=== PATIENT | male | born 1965 | race Caucasian/White ===

== ENCOUNTER 2021-06-15 15:23 | Emergency (ER) | payer OTHER, SELFPAY ==
--- NOTE | ~2021-06-15 | XR_ITS ---
EXAMINATION: XR HAND, LEFT CLINICAL INFORMATION: Left hand laceration. COMPARISON: None TECHNIQUE: PA, lateral, and oblique views of the left hand. FINDINGS: Multiple punctate radiopaque densities are seen overlying the second metacarpal phalangeal region. A larger radiopaque density overlies the lateral wrist. Osseous structures are intact without overt fracture. The carpal bones are normally aligned. The distal radius and ulna are intact. XR/XR hand LT min 3V IMPRESSION: 1. Multiple punctate radiopaque densities/foreign bodies overlying the second metacarpophalangeal region may be associated with the patient's laceration. Correlate with physical exam. A larger radiopaque density overlying the left wrist may or may not be associated with the patient's acute injury. No acute osseous abnormality.
[2021-06-15 15:38] VITALS: BP 188/117; PULSE 89; RESP 18; TEMP 36.5; O2SAT 95; BMI 39.9
[2021-06-15] MEDS: Lidocaine HCl 1 % MPF 5 ML VIAL SUBCUT ×2 (16:12→16:13)
[2021-06-15] MEDS: Diphth,Pertus(ACell),Tet Adult 0.5 ML SYRINGE IM (16:32)
--- NOTE | 2021-06-15 17:10 | ED.WOUNDLAC ---
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, no numbness no weakness no tingling no other injury no foreign body sensation Related Data Previous Rx's Medication Instructions Recorded cephalexin 500 mg tablet 500 mg PO QID 5 Days #20 tab 06/15/21 Allergies Allergy/AdvReac Type Severity Reaction Status Date / Time penicillin V Allergy Unknown Verified 04/19/13 00:00 Penicillins [PENICILLINS] Allergy Unknown ANAPHYLAXIS Unverified 12/29/19 14:45 Review of Systems Review of Systems: Positive for left hand laceration Negatives are no fever no chills no dizziness no weakness no fainting no feeling faint no headache no neck pain no numbness weakness or tingling no foreign body since no other extremity injuries Yes all other systems are reviewed and are negative PMFSH Past Medical History Source: nursing notes reviewed Social History Social History Advance Directives: No Advance Directives Information Provided: No Physical Exam Vital Signs: Vital Signs: Last Vital Signs Temp 97.7 F 06/15/21 15:38 Pulse 73 06/15/21 17:23 Resp 18 06/15/21 17:23 BP 171/111 H 06/15/21 17:23 Pulse Ox 95 06/15/21 17:23 BMI result Body Mass Index 39.9 General appearance no acute distress Head is normocephalic atraumatic Neck is supple Respiratory no distress Extremities full range of motion x4 including left hand which has a 3 cm gaping laceration from the dorsum of the index finger over the MCP joint to the back of the hand, there is full extension with full strength and normal sensation distal Other extremities normal No focal motor sensory deficits Course Course Course Narrative: X-ray of left hand showed multiple punctate radiopaque densities overlying 2nd MCP area which is where the laceration is I could not visualize these foreign bodies and I did irrigate copiously Laceration repair note for left hand laceration Anesthesia was 6 cc of 1% lidocaine The wound was copiously irrigated and no foreign body was visualized Wound was closed with a mix of 4-0 in 5 0 sutures, bleeding was controlled Dressing was applied Prophylactic antibiotic Keflex was given as well as a tetanus shot Due to a childhood questionable allergy to penicillin the patient was observed for half an hour with no reaction to the antibiotic Discharge Plan Discharge Clinical Impression: Laceration Patient Disposition: Home, Self-Care Additional Instructions: Stitches out in 10-14 days You got a tetanus shot We using preventive antibiotic Keflex for 5 days Return any time for spreading redness, worse pain and swelling, fever, red stripe up the arm, any sign of infection any worse condition or any concerns Prescriptions: New cephalexin 500 mg tablet 500 mg PO QID 5 Days Qty: 20 0RF
[2021-06-15] MEDS: cephALEXin 500 MG CAPSULE PO (17:22)
[2021-06-15 17:23] VITALS: BP 171/111; PULSE 73; RESP 18; O2SAT 95
== END 2021-06-15 18:06 | disposition home or self-care (01) ==
PROVIDERS: Emergency Provider Emergency Medicine Emergency Medical Services; PCP Internal Medicine
DX: S61.422A Laceration with foreign body of left hand, initial encounter (principal); W29.8XXA Contact with other powered hand tools and household machinery, initial encounter; Y93.89 Activity, other specified; Y92.019 Unspecified place in single-family (private) house as the place of occurrence of the external cause; Y99.9 Unspecified external cause status
CPT/HCPCS: 12042; 73130; 90471; 90715; 99283; 99284

== ENCOUNTER 2021-11-15 11:31 | Emergency (ER) | payer OTHER, SELFPAY ==
--- NOTE | ~2021-11-15 | XR_ITS ---
EXAMINATION: XR HAND, RIGHT CLINICAL INFORMATION: Right index finger COMPARISON: 06/15/2021 TECHNIQUE: PA, lateral, and oblique views of the right hand. FINDINGS: There are degenerative changes, at the second DIP joint but there is no fracture or dislocation process. XR/XR hand RT 2V IMPRESSION: No acute finding. No fracture.
[2021-11-15 11:47] VITALS: BP 183/91; PULSE 73; RESP 18; TEMP 36.7; O2SAT 94; BMI 37.5
--- NOTE | 2021-11-15 12:38 | ED.UPPEXIN ---
HPI - Extremity Injury (Upper) General Chief Complaint: Extremity Injury, Upper Stated Complaint: finger INJ Time Seen by Provider: 11/15/21 12:11 Source: patient Mode of arrival: ambulatory Limitations: no limitations History of Present Illness HPI narrative: 56-year-old male presenting to the ED with complaints of right index finger pain after he accidentally hammer date with an item at home. He reports that since then he has been having pain. He denies any paresthesia or any other injuries complaints or concerns at this time. 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) Other injuries: none Handedness: right Place: home Severity: mild Relieving factors: none Exacerbating factors: movement of extremity Context: direct blow Associated symptoms: denies other symptoms Related Data Previous Rx's Medication Instructions Recorded cephalexin 500 mg tablet 500 mg PO QID 5 days #20 tabs 06/15/21 acetaminophen 300 mg-codeine 30 mg 1 tab PO Q8H PRN pain #14 tabs 11/15/21 tablet ibuprofen 800 mg tablet 800 mg PO Q8H PRN pain #14 tabs 11/15/21 Allergies Allergy/AdvReac Type Severity Reaction Status Date / Time penicillin V Allergy Unknown Anaphylaxis Verified 11/15/21 11:47 Penicillins [PENICILLINS] Allergy Unknown ANAPHYLAXIS Verified 11/15/21 11:47 Review of Systems Review of Systems: Constitutional : No Weight loss, No Fever, No Chills, No Night Sweats, No Fatigue, No Malaise ENT/Mouth : No Hearing loss, No Ear Pain, No Nasal Congestion, No Sinus Pain, No Hoarseness, No sore throat, No Rhinorrhea, No Swallowing Difficulty Eyes: No Eye Pain, No Swelling, No Redness, No Foreign Body, No Discharge, No Vision Changes Cardiovascular : No Chest Pain, No SOB, No Dyspnea on Exertion, No Orthopnea, No Edema, No Palpitations Respiratory : No Cough, No Sputum, No Wheezing, No Smoke Exposure, No Dyspnea Gastrointestinal : No Nausea, No Vomiting, No Diarrhea, No Constipation, No abdominal Pain, No Hematochezia, No Melena Genitourinary : no irregular bleeding, No Dysuria, No Urinary Frequency, No Hematuria, No Urinary Incontinence, No Urgency, No Flank Pain, No Urinary Flow Changes, No Hesitancy Musculoskeletal : + right index finger joint pain, No Myalgias, No Joint Swelling Skin : No Skin Lesions, No rash Neuro : No Weakness, No Numbness, No Paresthesias, No Loss of Consciousness, No Dizziness, No Headache Psych : No Anxiety/Panic, No Depression, No SI/HI/AH/VH, No Social Issues, Heme/Lymph: No Bruising, No Bleeding,No Lymphadenopathy Endocrine : No Polyuria, No Polydipsia, No Temperature Intolerance Yes all other systems are reviewed and are negative [facility] Past Medical History Attestation statement: The following information was validated with the patient. Social History Social History Advance Directives: No Advance Directives Information Provided: No Physical Exam Vital Signs: Vital Signs: Last Vital Signs Temp 98.1 F 11/15/21 11:47 Pulse 73 11/15/21 11:47 Resp 18 11/15/21 11:47 BP 183/91 H 11/15/21 11:47 Pulse Ox 94 11/15/21 11:47 O2 Del Method 11/15/21 11:47 BMI result Body Mass Index 37.5 vital signs have been reviewed as normal and appeared to be correct. Blood pressure 183/91 Heart rate normal. Respiration rate normal. Temperature normal. Oxygen saturation normal. Appearance: Alert. Oriented X3. No acute distress. Head: Normal external exam. Normocephalic. Atraumatic. Eyes: PERRLA. EOMI. Conjunctiva and sclera normal. Eyelids normal. ENT: Pharynx normal. Uvula midline. Moist mucous membranes. Neck: Normal inspection. Neck supple. FROM. CVS: Normal heart rate and rhythm. Respiratory: No respiratory distress. Painless inspiration. Skin: Skin warm and dry. Normal skin color. Normal skin turgor. No rashes/lesions/lacerations noted. Extremities: right index finger pain/swelling although no obvious ligamentous or tendon injury noted. He has full range of motion all fingers. Otherwise all other extremities exhibit normal range of motion nontender. Neuro: Oriented X 3. No motor deficit. No sensory deficit. Reflexes normal. Normal steady gait. No focal neuro deficits noted. Vascular: + radial pulses/+ 2 distal pedal pulses/+2 dorsalis pedis b/l. Normal cap refill. No cyanosis noted to upper extremity nails and lower extremity toes nails. Course Course Course Narrative: X-ray negative for any acute fractures. Patient most likely finger sprain. Will DC home with symptomatic treatment instructions return if any new or worsening symptoms follow up with primary care provider. Patient understands agrees with this plan. MDM - Extremity Injury (Upper) Medical Records Attestation: I reviewed the patient's medical records. Imaging Data finger right sided : Attestation: I personally reviewed and interpreted this imaging study as follows: Radiologist's impression: FINDINGS: There are degenerative changes, at the second DIP joint but there is no fracture or dislocation process.? XR/XR hand RT 2V IMPRESSION: No acute finding. No fracture. Discharge Plan Discharge Clinical Impression: Sprain of right index finger Patient Disposition: Home, Self-Care Instructions: Finger Sprain (ED) Prescriptions: New ibuprofen 800 mg tablet 800 mg PO Q8H PRN (Reason: pain) Qty: 14 0RF acetaminophen-codeine 300-30 mg tablet 1 tab PO Q8H PRN (Reason: pain) Qty: 14 0RF No Action cephalexin 500 mg tablet 500 mg PO QID 5 Days Qty: 20 0RF Referrals: Sandeep Bhardwaj DO, MD [Primary Care Provider] - 3 days Print Language: Slovak
== END 2021-11-15 13:27 | disposition home or self-care (01) ==
PROVIDERS: Emergency Provider Emergency Medicine; PCP Internal Medicine
DX: S63.610A Unspecified sprain of right index finger, initial encounter (principal); M79.641 Pain in right hand; Y29.XXXA Contact with blunt object, undetermined intent, initial encounter; Y93.9 Activity, unspecified; Y92.9 Unspecified place or not applicable; Y99.9 Unspecified external cause status; Z79.899 Other long term (current) drug therapy
CPT/HCPCS: 73120; 99282; 99283

== ENCOUNTER 2024-10-19 08:44 | Outpatient (AMB) | payer OTHER, SELFPAY ==
--- NOTE | 2024-10-19 08:46 | A.OFFVIS_ITS ---
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 Most recent A1c last month was 9% secondary to noncompliance with medication. Was initially started on treatment with metformin couldn't tolerate the 1000 mg regular strength formulation. . Current regimen: jardiance 25 mg metformin ER 1000mg bid Lantus 60 units holds if less than 130 due to nocturnal hypoglycemia he takes this only twice per week as he does not like injecting insulin Humalog sliding scale this was not covered by his insurance and he did not discuss with his PCP. Checks sugars none recent Reports low sugars in the past at night when taking 60 units of Lantus Most recent A1C: 9% 09/23/24 Family history of T2DM in Has retinopathy requiring eye injections, has f/u scheduled + neuropathy, mainly numbness. Denies nephropathy, on arb. [facility] Has HLD, on statin. Last LDL [] as measured on []. denies CAD. Diet: has been attempting to balance. Weight: stable Has not had diabetes education. [facility] Medical History (Updated 10/19/24 @ 09:53 by Ebony Leigh NP) Diabetes type 2 Myocardial infarction Lumbar spinal stenosis Acute insomnia HTN (hypertension) HLD (hyperlipidemia) GERD (gastroesophageal reflux disease) History of morbid obesity Surgical History (Updated 10/19/24 @ 09:30 by ABBY Sparks) S/P lumbar fusion Shoulder pain with history of repair of rotator cuff History of coronary artery stent placement Hx of rotator cuff surgery History of back surgery History of surgery on left wrist Hx of neck surgery Family History Father Family history of diabetes mellitus Mother No problems noted. Social History Alcohol intake: never Patient Tobacco Use Status: Never used Tobacco Physical Exam Vital Signs: Last Vital Signs Pulse 64 10/19/24 08:47 BP 112/70 10/19/24 08:47 Pulse Ox 94 10/19/24 08:47 Oxygen Delivery Method Room Air 10/19/24 08:47 BMI result Body Mass Index 39.7 Absence of Cushingoid features. Absence of acromegalic features. Neck exam reveals nl size thyroid about 15 gms. No thyroid nodules palpable. No carotid bruits present. Lungs CTA. Heart S1 S2, Reg R/R. No M/R/ G. Skin exam reveals absence of vitiligo or acanthosis nigricans. Abdominal exam reveals Soft NT/ND with NA BS. No organomegaly present. Const Other: Absence of Cushingoid features. Absence of acromegalic features. Neck exam reveals nl size thyroid about 15 gms. No thyroid nodules palpable. Heart S1 S2, Reg R/R. No M/R G. Abdomen protuberant. Skin exam reveals absence of vitiligo or acanthosis nigricans. No edema. Visual exam of foot performed. No ulcerations or open lesions. No inter digit maceration or fissuring. No onychomycosis, no callouses. Sensation intact to monofilament exam. Vibratory sensation is diminshed with 128 Hz tuning fork. Neck Other: . Extrem Other: Visual exam of foot performed. No ulcerations or open lesions. No onchomycosis, no callouses.Pulses 2 + distally Sensation intact to monofilament exam. Vibratory sensation sensed is intact with 128 Hz tuning fork Office Procedures AMB Patient Education/Training AMB Patient Education/Training Documentation: Patient was educated about Mounjaro. Pt is aware this is given once per week. Advised patient to write this done on a calendar or there is a weekly calendar located on the inside cover of the box that mounjaro is dispensed in. Pt is aware that each mounjaro pen is for one time use. Patient was advised to keep the mounjaro in the fridge. If kept at room temperature it is okay to use for up to 21 days. Patient advised this can be given in the abdomen or thighs. In regards to the abdomen patient is aware to keep 2 inches away from the umbilicus. Advised with the back of the arms they need to have someone else administer injection. Pt aware he needs to rotate his sites in order to avoid scar tissue build up and to ensure medication is absorbed fully. Patients is aware to avoid any areas that are open, bruised, scars or are otherwise not clean and intact. Pt advised the following regarding steps to inject Trulicity. 1. Wash your hands and clean the site of injection with an alcohol swab. 2. Uncap the pen by pulling the base cap straight off and disposing in the regular trash. 3. Place the Mounjaro at your site of injection and unlock by turning the lock ring. 4. Press and hold the green injection button. You will hear a click 5. Continue to hold firmly until you hear a second click about 5-10 seconds. 6. Remove the pen from your skin and dispose of Mounjaro in a sharps container. atient advised to call with any side effects such as nausea, vomiting, abdominal pain or with any low blood sugars. Reviewed signs and symptoms of hypoglycemia such as shakiness, sweating, dizziness or tremors. Patient advised to check via fingerstick when this happens. Patient confirms has a glucometer at home and is aware of how to use it. Patient aware to call the office with any other concerns or questions. Results Reviewed Results Reviewed: Laboratory Last Values Glucose (Clinic) 154 mg/dL (60-115) H 10/19/24 09:13 Assessment & Plan Assessment & Plan (1) Diabetes type 2: Code(s): E11.9 - Type 2 diabetes mellitus without complications Category: Medical Plan: 58-year-old type 2 diabetic with poor control primarily secondary to noncompliance with the using sensor noncompliance with taking insulin as he reports he does not like to prick himself. He also reports his bolus insulin was not covered by his insurance. I reviewed with him given his retinopathy for which he is getting injections for that control of his diabetes is of the utmost importance. With his A1c at 9%, he is approximately 75% more likely to h ave continued damage with his eyes/kidneys. We reviewed getting a morning glucose of less than 130 and 2 hours postprandial 180. Continue Jardiance 25 mg daily Continue metformin a 1000 b.i.d. Restart Lantus at 45 units Start on Mounjaro 2.5 mg. As he has retinopathy this would be the best choice for him as far as a GLP 1 agonist goes. Trulicity is contraindicated with retinopathy. He will be sent to meet cVidya meter test strips and lancets for backup. He will return in approximately 6 weeks to meet with the another provider as I am retiring. I did stress to the patient the importance of getting his blood sugars under control. Orders: Orders AMB Patient Education/Training Session 10/19/24 E11.9 - Type 2 diabetes mellitus without complications Medications: New Mounjaro (tirzepatide) 2.5 mg (0.5 mL) subcut QWEEK 2 mL 3RF 4 weeks NS Dexcom G6 Sensor (blood-glucose sensor) As directed every 10 days 3 ea 11RF NS E11.9 - Type 2 diabetes mellitus without complications Discontinued cephalexin Discontinued Reason: Doctor's Order 500 mg PO QID 5 days 20 tabs 0RF ibuprofen Discontinued Reason: Doctor's Order 800 mg PO Q8H PRN 14 tabs 0RF pain Patient Instructions: The patient had an opportunity to ask questions regarding treatment plan. The patient expressed understanding and agreement with the above treatment plan. The patient is aware they should contact our office by phone for worsening glucose readings or for any low blood sugars which may warrant a change in diabetes medication. Compliance is encouraged with medications and any followup testing/consults which may have been ordered. The patient was counseled to achieve a target A1C of 7% (154 avg). Fasting blood sugars should be 90-130 in the morning and less than 180 two hours after meals. Reviewed the relationship between poor diabetic control and the development of complications. Check your feet daily looking for any signs of infection, drainage, redness, ulceration and seek medical attention if this occurs. Break in shoes gradually and do not wear open-toed shoes or walk stocking footed or barefooted. Coding Level of Care Code Tele New Pt Level 4 (79694) Complex EM visit Add On G2211 Diagnoses Diabetes type 2 E11.9 Time Spent (min) 30 Comment Time spent reviewing labs/provider notes, face to face, chart doc
[2024-10-19 08:47] VITALS: BP 112/70; PULSE 64; O2SAT 94; BMI 39.7
[2024-10-19 09:17] LABS: Glucose, Whole Blood 154 mg/dL (60-115)
== END 2024-10-19 10:00 | disposition home or self-care (01) ==
LOC: HO.ENCR 08:45
PROVIDERS: PCP Internal Medicine; Visit Provider Nurse Practitioner Adult Health
DX: E11.9 Type 2 diabetes mellitus without complications (principal)
CPT/HCPCS: 99204; G2211

== ENCOUNTER → 2024-10-19 08:44 | Outpatient (BNVA) | payer OTHER, SELFPAY | PROVIDERS: PCP Internal Medicine; Visit Provider Nurse Practitioner Adult Health | DX: E11.9 Type 2 diabetes mellitus without complications (principal) | CPT/HCPCS: 82947; 99202 ==

== ENCOUNTER 2024-11-16 09:09 | Outpatient (AMB) | payer OTHER, SELFPAY ==
[2024-11-16 09:24] VITALS: BP 122/80; PULSE 68; O2SAT 98; BMI 39.4
--- NOTE | 2024-11-16 09:24 | A.OFFVIS_ITS ---
Vital Signs 11/16/24 09:24 Height 5 ft 7 in Weight 251 lb 5.231 oz BMI 39.4 BP 122/80 Blood Pressure Location Rt brachial Position Sitting Pulse 68 Pulse Source Pulse Oximeter Pulse Oximetry (%) 98 Oxygen Delivery Method Room Air Intake Visit Reasons: T2DM Intake Note: Patient presents today for a follow-up on Type 2 Diabetes Mellitus: Last Diabetic eye exam was on: Patient sees [place] Din[facility] every 8 weeks for eye shots, next will see the surgeon for possible cataract surgery. Last Podiatry exam was on: Patient does not see a Computer Technical Specialist Most recent HbA1c: 9.0%, 09/23/2024 PCP Random Glucose: 123 mg/dL Incident Response Specialist Required: No Accompanied by: Self / Same As Patient Allergies penicillin V Allergy (Unknown, Verified 10/19/24 08:47) Anaphylaxis Penicillins (PENICILLINS) Allergy (Unknown, Verified 10/19/24 08:47) ANAPHYLAXIS HPI Comments Details: 59 YO male who is seen in consultation for T2DM at the request of PCP. Most recent A1c last month was 9% secondary to noncompliance with medication. Medical history-[place], htn, hld, retinopathy Was initially started on treatment with metformin couldn't tolerate the 1000 mg regular strength formulation. Medications Continue Jardiance 25 mg daily Continue metformin ER 1000 b.i.d.-intolerant regular release Lantus 20 units. Has been only taking 10 units. Mounjaro 2.5 mg-just completed 4th dose. Incredible improvement in glucose readings. Trulicity is contraindicated with retinopathy. Most recent A1C: 9% 09/23/24. Is currently getting fasting 80s-130s. Blood glucose has not been higher than 156 since starting mounjaro. Was getting low BG with lantus 20 Family history of T2DM in Has retinopathy requiring eye injections, has f/u scheduled + neuropathy, mainly numbness. Denies nephropathy, on arb. [facility] Has HLD, on statin. Last LDL [] as measured on []. denies CAD. Diet: has been attempting to balance. Weight: down 2 pounds Has not had diabetes education. ROS CONSTITUTIONAL: Denies weight loss, fever and chills. HEENT: Denies changes in vision and hearing. RESPIRATORY: Denies SOB and cough. CV: Denies palpitations and CP GI: Denies abdominal pain, nausea, vomiting and diarrhea. : Denies dysuria and urinary frequency. MSK: Denies new myalgia and joint pain. SKIN: Denies rash and pruritus. NEUROLOGICAL: Denies headache PSYCHIATRIC: Denies recent changes in mood. PHYSICAL EXAM: GENERAL: Alert and oriented x 3. NAD EYES: EOMI. Anicteric. HENT: Moist mucous membranes. No scleral icterus. No cervical lymphadenopathy. LUNGS: Clear to auscultation bilaterally. CARDIOVASCULAR: Regular rate and rhythm. No murmur. No JVD. ABDOMEN: Soft, non-tender +bs EXTREMITIES: No edema. Non-tender. SKIN: No rashes or lesions. Warm. NEUROLOGIC: No focal neurological deficits. CN II-XII grossly intact PSYCHIATRIC: Cooperative. Appropriate mood and affect [facility] Medical History Diabetes type 2 Myocardial infarction Lumbar spinal stenosis Acute insomnia HTN (hypertension) HLD (hyperlipidemia) GERD (gastroesophageal reflux disease) History of morbid obesity Surgical History S/P lumbar fusion Shoulder pain with history of repair of rotator cuff History of coronary artery stent placement Hx of rotator cuff surgery History of back surgery History of surgery on left wrist Hx of neck surgery Family History Father Family history of diabetes mellitus Mother No problems noted. Social History Alcohol intake: never Patient Tobacco Use Status: Never used Tobacco Physical Exam Vital Signs: Last Vital Signs Pulse 68 11/16/24 09:24 BP 122/80 11/16/24 09:24 Pulse Ox 98 11/16/24 09:24 Oxygen Delivery Method Room Air 11/16/24 09:24 BMI result Body Mass Index 39.4 Results Reviewed Results Reviewed: Laboratory Last Values Glucose (Clinic) 123 mg/dL (60-115) H 11/16/24 09:30 Assessment & Plan Assessment & Plan (1) Diabetes type 2: Code(s): E11.9 - Type 2 diabetes mellitus without complications Category: Medical Qualifiers: Diabetes mellitus alf insulin use: with supervisor long goods use Diabetes mellitus complication status: with ophthalmic complications Diabetes mellitus complication detail: with diabetic retinopathy Diabetic retinopathy severity: with unspecified retinopathy severity Diabetes mellitus macular edema: macular edema presence unspecified Laterality: left Qualified Code(s): E11.319 - Type 2 diabetes mellitus with unspecified diabetic retinopathy without macular edema; Z79.4 - [facility] (current) use of insulin Plan: DM follow up Improved glycemic control. continue lantus at 10 units. Increase mounjaro to 5u weekly Will expected A1C at goal with next draw. Treat hypoglycemia by rules of 15s. Follow up six weeks -sooner as needed Medications: New Mounjaro (tirzepatide) 5 mg (0.5 mL) subcut QWEEK 6 mL 1RF NS E11.9 - Type 2 diabetes mellitus without complications Dexcom G7 Sensor (blood-glucose sensor) every 10 days 9 ea 3RF NS E11.9 - Type 2 diabetes mellitus without complications Dexcom G7 Freight Shipping Agent (blood-glucose,spa director,cont) As directed 1 ea 0RF NS E11.9 - Type 2 diabetes mellitus without complications Changed From empagliflozin (Jardiance) 25 mg PO DAILY To Jardiance (empagliflozin) 25 mg PO DAILY 90 tabs 3RF NS Discontinued Mounjaro (tirzepatide) Discontinued Reason: Duplicate 2.5 mg (0.5 mL) subcut QWEEK 4 weeks 2 mL 3RF NS Coding Level of Care Code Est Pt Level 4 (37942) Diagnoses Type 2 diabetes mellitus with retinopathy of left eye, with long-term current use of insulin, macular edema presence unspecified, unspecified retinopathy severity E11.319; Z79.4 Diabetes mellitus alf insulin use: with alf use Diabetes mellitus complication status: with ophthalmic complications Diabetes mellitus complication detail: with diabetic retinopathy Diabetic retinopathy severity: with unspecified retinopathy severity Diabetes mellitus macular edema: macular edema presence unspecified Laterality: left
[2024-11-16 09:34] LABS: Glucose, Whole Blood 123 mg/dL (60-115)
== END 2024-11-16 09:57 | disposition home or self-care (01) ==
LOC: HO.ENCR 09:10
PROVIDERS: PCP Internal Medicine; Visit Provider Internal Medicine
DX: E11.319 Type 2 diabetes mellitus with unspecified diabetic retinopathy without macular edema (principal); Z79.4 Long term (current) use of insulin

== ENCOUNTER → 2024-11-16 09:09 | Outpatient (BNVA) | payer OTHER, SELFPAY | PROVIDERS: PCP Internal Medicine; Visit Provider Internal Medicine | DX: E11.311 Type 2 diabetes mellitus with unspecified diabetic retinopathy with macular edema (principal); Z79.4 Long term (current) use of insulin | CPT/HCPCS: 82947; 99212 ==

== ENCOUNTER 2024-12-28 15:37 | Outpatient (AMB) | payer OTHER, SELFPAY ==
--- NOTE | 2024-12-28 15:43 | A.OFFVIS_ITS ---
Vital Signs 12/28/24 15:44 Height 5 ft 7 in Weight 244 lb 11.41 oz BMI 38.3 BP 148/90 H Blood Pressure Location Rt brachial Position Sitting Pulse 81 Pulse Source Pulse Oximeter Pulse Oximetry (%) 94 Oxygen Delivery Method Room Air Intake Visit Reasons: DM Intake Note: Patient presents today for a follow-up on Type 2 Diabetes Mellitus: Last Diabetic eye exam was on: Patient sees [place] Dinorah every 8 weeks for eye shots, next will see the surgeon for possible cataract surgery. Last Podiatry exam was on: Patient does not see a Boiler Shop Supervisor Most recent HbA1c: 7.0%, 12/20/2024, [facility] Random Glucose: 101 mg/dL Will Call Clerk Required: No Accompanied by: Self / Same As Patient Allergies Penicillins (PENICILLINS) Allergy (Unknown, Verified 12/28/24 15:44) ANAPHYLAXIS HPI Comments Details: 59 YO male who is seen in consultation for T2DM at the request of PCP. Most recent A1c last month was 9% secondary to noncompliance with medication. Medical history-[place], htn, hld, retinopathy Was initially started on treatment with metformin couldn't tolerate the 1000 mg regular strength formulation. Medications On Jardiance 25 mg daily On metformin ER 1000 b.i.d.-was intolerant regular release Lantus -is not taking Mounjaro 5mg weekly Trulicity is contraindicated with retinopathy. A1C 7.0 12/2024 ([facility]) from 9% 09/23/24. Is currently getting fasting 80s-130s. CGM-GMI 6.4% 96% target 3% high 1% low Denies hypoglycemia since last visit except for this morning Family history of T2DM in Has retinopathy requiring eye injections, has f/u scheduled + neuropathy, mainly numbness but pain in the feet when laying at night. History of lumbar surgery Has HLD, on statin. Last LDL [] as measured on []. denies CAD. Diet: has been attempting to balance. Has lost weight Weight: down 2 pounds Has not had diabetes education. ROS CONSTITUTIONAL: Denies weight loss, fever and chills. HEENT: Denies changes in vision and hearing. RESPIRATORY: Denies SOB and cough. CV: Denies palpitations and CP GI: Denies abdominal pain, nausea, vomiting and diarrhea. : Denies dysuria and urinary frequency. MSK: Denies new myalgia and joint pain. SKIN: Denies rash and pruritus. NEUROLOGICAL: see HPI PSYCHIATRIC: Denies recent changes in mood. PHYSICAL EXAM: GENERAL: Alert and oriented x 3. NAD EYES: EOMI. Anicteric. HENT: Moist mucous membranes. No scleral icterus. No cervical lymphadenopathy. LUNGS: Clear to auscultation bilaterally. CARDIOVASCULAR: Regular rate and rhythm. No murmur. No JVD. ABDOMEN: Soft, non-tender +bs EXTREMITIES: No edema. Non-tender. SKIN: No rashes or lesions. Warm. NEUROLOGIC: No focal neurological deficits. CN II-XII grossly intact PSYCHIATRIC: Cooperative. Appropriate mood and affect [facility] Medical History Diabetes type 2 Myocardial infarction Lumbar spinal stenosis Acute insomnia HTN (hypertension) HLD (hyperlipidemia) GERD (gastroesophageal reflux disease) History of morbid obesity Surgical History S/P lumbar fusion Shoulder pain with history of repair of rotator cuff History of coronary artery stent placement Hx of rotator cuff surgery History of back surgery History of surgery on left wrist Hx of neck surgery Family History Father Family history of diabetes mellitus Mother No problems noted. Social History Alcohol intake: never Patient Tobacco Use Status: Never used Tobacco Physical Exam Vital Signs: Last Vital Signs Pulse 81 12/28/24 15:44 BP 148/90 H 12/28/24 15:44 Pulse Ox 94 12/28/24 15:44 Oxygen Delivery Method Room Air 12/28/24 15:44 BMI result Body Mass Index 38.3 Results Reviewed Results Reviewed: Laboratory Last Values Glucose (Clinic) 101 mg/dL (60-115) 12/28/24 15:51 Assessment & Plan Assessment & Plan (1) Diabetes type 2: Code(s): E11.9 - Type 2 diabetes mellitus without complications Category: Medical Qualifiers: Diabetes mellitus complication detail: with diabetic retinopathy Diabetes mellitus complication status: with ophthalmic complications Diabetes mellitus [facility] insulin use: with superintendent terminal use Diabetes mellitus macular edema: macular edema presence unspecified Diabetic retinopathy severity: with unspecified retinopathy severity Laterality: left Qualified Code(s): E11.319 - Type 2 diabetes mellitus with unspecified diabetic retinopathy without macular edema; Z79.4 - care home (current) use of insulin Plan Type 2 diabetes-congratulated on interval control. continue eye exams. Neuropathy likely multifactorial but suspect more lumbar radicular symptoms xr lumbar spine ordered No medication changes. He may go up on mounjaro to 7.5mg when he completes his current prescription Orders: Orders XR lumbar spine 2-3V 12/28/24 M54.16 - Radiculopathy, lumbar region Coding Level of Care Code Est Pt Level 4 (90403) Complex EM visit Add On G2211 Diagnoses Type 2 diabetes mellitus with retinopathy of left eye, with long-term current use of insulin, macular edema presence unspecified, unspecified retinopathy severity E11.319; Z79.4 Diabetes mellitus complication detail: with diabetic retinopathy Diabetes mellitus complication status: with ophthalmic complications Diabetes mellitus superintendent terminal insulin use: with [facility] use Diabetes mellitus macular edema: macular edema presence unspecified Diabetic retinopathy severity: with unspecified retinopathy severity Laterality: left
[2024-12-28 15:44] VITALS: BP 148/90; PULSE 81; O2SAT 94; BMI 38.3
[2024-12-28 15:55] LABS: Glucose, Whole Blood 101 mg/dL (60-115)
== END 2024-12-28 16:08 | disposition home or self-care (01) ==
LOC: HO.ENCR 15:38
PROVIDERS: PCP Internal Medicine; Visit Provider Internal Medicine
DX: E11.319 Type 2 diabetes mellitus with unspecified diabetic retinopathy without macular edema (principal); Z79.4 Long term (current) use of insulin

== ENCOUNTER → 2024-12-28 15:37 | Outpatient (BNVA) | payer OTHER, SELFPAY | PROVIDERS: PCP Internal Medicine; Visit Provider Internal Medicine | DX: E11.319 Type 2 diabetes mellitus with unspecified diabetic retinopathy without macular edema (principal); Z79.4 Long term (current) use of insulin | CPT/HCPCS: 82947; 99212 ==

== ENCOUNTER 2025-03-29 13:24 | Outpatient (AMB) | payer OTHER, SELFPAY ==
--- NOTE | 2025-03-29 13:27 | A.OFFVIS_ITS ---
Vital Signs 03/29/25 13:31 Height 5 ft 7 in Weight 235 lb 14.314 oz BMI 36.9 BP 122/78 Blood Pressure Location Rt brachial Position Sitting Pulse Source Pulse Oximeter Pulse Oximetry (%) 96 Oxygen Delivery Method Room Air Intake Visit Reasons: DM Intake Note: Patient presents today for a follow-up on Type 2 Diabetes Mellitus: Last Diabetic eye exam was on: Patient sees [facility] every 8 weeks for eye shots, next will see the surgeon for possible cataract surgery. Last Podiatry exam was on: Patient does not see a Clinical Sociologist Most recent HbA1c: 5.9%, 03/29/2025 Random Glucose: 91 mg/dL Insole Cementer Required: No Accompanied by: Self / Same As Patient Allergies Penicillins (PENICILLINS) Allergy (Unknown, Verified 03/29/25 13:28) ANAPHYLAXIS HPI Comments Details: 59 YO male who is seen in consultation for T2DM at the request of PCP. Most recent A1c last month was 9% secondary to noncompliance with medication. Medical history-[place], htn, hld, retinopathy Medications On Jardiance 25 mg daily On metformin ER 1000 b.i.d.-was intolerant to regular release Lantus 10 units daily-not always compliant Mounjaro 7.5mg weekly Trulicity is contraindicated with retinopathy. A1C 5.9% from 7.0 12/2024 ([facility]) from 9% 09/23/24. CGM-GMI 5.9% 99% target 3% high 0% low 2% Weight is 253 to 235 Family history of T2DM in Has retinopathy requiring eye injections, has f/u scheduled + neuropathy, mainly numbness but pain in the feet when laying at night. History of lumbar surgery Has HLD, on statin. Last LDL [] as measured on []. denies CAD. Diet: has been attempting to balance. Has lost weight ROS CONSTITUTIONAL: Denies weight loss, fever and chills. HEENT: Denies changes in vision and hearing. RESPIRATORY: Denies SOB and cough. CV: Denies palpitations and CP GI: Denies abdominal pain, nausea, vomiting and diarrhea. : Denies dysuria and urinary frequency. MSK: Denies new myalgia and joint pain. SKIN: Denies rash and pruritus. NEUROLOGICAL: see HPI PSYCHIATRIC: Denies recent changes in mood. PHYSICAL EXAM: GENERAL: Alert and oriented x 3. NAD EYES: EOMI. Anicteric. HENT: Moist mucous membranes. No scleral icterus. No cervical lymphadenopathy. LUNGS: Clear to auscultation bilaterally. CARDIOVASCULAR: Regular rate and rhythm. No murmur. No JVD. ABDOMEN: Soft, non-tender +bs EXTREMITIES: No edema. Non-tender. SKIN: No rashes or lesions. Warm. NEUROLOGIC: No focal neurological deficits. CN II-XII grossly intact PSYCHIATRIC: Cooperative. Appropriate mood and affect [facility] Medical History Diabetes type 2 Myocardial infarction Lumbar spinal stenosis Acute insomnia HTN (hypertension) HLD (hyperlipidemia) GERD (gastroesophageal reflux disease) History of morbid obesity Surgical History S/P lumbar fusion Shoulder pain with history of repair of rotator cuff History of coronary artery stent placement Hx of rotator cuff surgery History of back surgery History of surgery on left wrist Hx of neck surgery Family History Father Family history of diabetes mellitus Mother No problems noted. Social History Alcohol intake: never Patient Tobacco Use Status: Never used Tobacco Physical Exam Vital Signs: Last Vital Signs BP 122/78 03/29/25 13:31 Pulse Ox 96 03/29/25 13:31 Oxygen Delivery Method Room Air 03/29/25 13:31 BMI result Body Mass Index 36.9 Results AMB Hemoglobin A1c AMB Hemoglobin A1c 5.9 % Last Edit by ABBY Sparks on 03/29/25 13:44 Assessment & Plan Assessment & Plan (1) Diabetes type 2: Code(s): E11.9 - Type 2 diabetes mellitus without complications Category: Medical Qualifiers: Diabetes mellitus long wall mining machine helper insulin use: with long wall mining machine helper use Diabetes mellitus complication status: with ophthalmic complications Diabetes mellitus complication detail: with diabetic retinopathy Diabetic retinopathy severity: with unspecified retinopathy severity Diabetes mellitus macular edema: macular edema presence unspecified Laterality: left Qualified Code(s): E11.319 - Type 2 diabetes mellitus with unspecified diabetic retinopathy without macular edema; Z79.4 - half-way (current) use of insulin Plan 59 year old male for diabetic follow up A1C is excellent. Unfortunately having some hypoglycemia overnight. Decrease metformin to 1000mg if still present to 500mg daily Increase mounjaro to 10 units daily. Lantus refilled Treat hypoglycemia by rules of 15s Follow up in 3 months or sooner as needed Orders: Orders AMB Hemoglobin A1c Today E11.319 - Type 2 diabetes mellitus with unspecified diabetic retinopathy without macular edema, Z79.4 - terminal makeup operator (current) use of insulin Medications: New insulin glargine (Lantus Solostar U-100 Insulin) 10 units (0.1 mL) subcut QPM 3 mL 3RF Mounjaro (tirzepatide) 10 mg (0.5 mL) subcut QWEEK 6 mL 3RF NS E11.319 - Type 2 diabetes mellitus with unspecified diabetic retinopathy without macular edema, Z79.4 - terminal makeup operator (current) use of insulin Changed From metformin ER (Fortamet) 1,000 mg PO BID To metformin ER (Fortamet) 1,000 mg (2 x 500 mg) PO DAILY 180 tabs 3RF Discontinued Mounjaro (tirzepatide) Discontinued Reason: Doctor's Order 5 mg (0.5 mL) subcut QWEEK 6 mL 1RF NS E11.9 - Type 2 diabetes mellitus without complications Mounjaro (tirzepatide) Discontinued Reason: Doctor's Order 7.5 mg (0.5 mL) subcut QWEEK 6 mL 3RF NS E11.319 - Type 2 diabetes mellitus with unspecified diabetic retinopathy without macular edema, Z79.4 - half-way (current) use of insulin Coding Level of Care Code Est Pt Level 4 (53418) Diagnoses Type 2 diabetes mellitus with retinopathy of left eye, with long-term current use of insulin, macular edema presence unspecified, unspecified retinopathy sev erity E11.319; Z79.4 Diabetes mellitus [facility] insulin use: with [facility] use Diabetes mellitus complication status: with ophthalmic complications Diabetes mellitus complication detail: with diabetic retinopathy Diabetic retinopathy severity: with unspecified retinopathy severity Diabetes mellitus macular edema: macular edema presence unspecified Laterality: left
[2025-03-29 13:31] VITALS: BP 122/78; O2SAT 96; BMI 36.9
[2025-03-29 13:38] LABS: Glucose, Whole Blood 91 mg/dL (60-115)
--- OUTSIDE RECORDS SUMMARY | 2025-03-29 17:35 | XMS_ITS | Patient Health Record ---
Author Organization [facility] Address [address] [place] [address] Care Team Providers Care Handyperson Name Role Phone DEMETRIUSJameel DIAMANTE HARRINGTON Primary Care Provider PAVEL Goodman Unavailable [phone] Allergies Allergen (clinical drug ingredient) Drug/Non Drug Allergy documented on EMR Reaction Allergy Type Onset Date Status Penicillin rash Drug Allergy Active Reason For Referral No Information Medications Medication SIG (Take, Route, Frequency, Duration) Notes Start Date End Date Status Lantus SoloStar 100 UNIT/ML Solution Pen-injector 40 units subcutaneously at bedtime Active Atorvastatin Calcium 10 MG Tablet 1 tab(s) orally once a day; Duration: 30 day(s) Active Metoprolol Succinate ER 25 MG Tablet Extended Release 24 Hour 1 tab(s) orally once a day; Duration: 30 day(s) Active Meloxicam 15 MG Tablet 1 tablet orally o nce a day; Duration: 30 day(s) Active amLODIPine Besylate 5 MG Tablet 1 tab(s) orally once a day; Duration: 30 day(s) Active Pantoprazole Sodium 20 MG Tablet Delayed Release 1 tab(s) orally once a day; Duration: 30 day(s) Active Jardiance 25 MG Tablet 1 tablet Orally O nce a day; Duration: 30 day(s) Active Valsartan-hydroCHLOROthia zide 320-12.5 MG Tablet 1 tab(s) orally once a day; Duration: 30 day(s) Active Social History Tobacco Use: Social History Observation Description Date Details (start date - stop date) Never Smoker NA - NA Social History Tobacco Use: Social Info Question Answer Notes Smoking Are you a: never smoker Additional Details Category Social Info Options Details General Occupation: disabled asbestos exposure: yes Past year's travels: None alcohol use: no drug use: no Hobbies/Exercise habits: Work on cars, Walk dogs, Car shows Coffee/Tea/Soda: yes Ice tea, Soda Marital Status single experience no Living with father Pets 2 dogs smokers in household no Problems Problem Type SNOMED Code ICD Code Onset Dates Problem Status W/U Status Risk Notes Problem Inflammatory polyarthritis (150218840) Inflammatory polyarthritis (M06.4) Active confirmed Problem Primary osteoarthritis (035495993) Primary osteoarthritis involving multiple joints (M89.49) Active confirmed Plan Of Treatment No Information Insurance Providers Payer Name Payer Address Payer Phone Subscriber Number Group Number Insured Name Patient Relationship to Insured Coverage Start Date Coverage End Date [facility] [address] [place] [phone] [id number] JASWANT MORENO Self - patient is the insured Medications Administered Medication Instructions Date of Administration Dosage Notes Triamcinolone Acetonide, mul ti-dose vial, 02/07/2021 60 mg Medical (General) History Medical History History ICD Code Hypertension Hypercholesterolemia Diabetes Surgical History Surgery Date(Month/Year) Lower back surgery x2 Wrist surgery Nose surgery Left rotator cuff 08/2018 Hospitalization History Reason Date(Month/Year[place] [facility] [place]
== END 2025-03-29 13:52 | disposition home or self-care (01) ==
LOC: HO.ENCR 13:25
PROVIDERS: PCP Internal Medicine; Visit Provider Internal Medicine
DX: E11.319 Type 2 diabetes mellitus with unspecified diabetic retinopathy without macular edema (principal); Z79.4 Long term (current) use of insulin

== ENCOUNTER → 2025-03-29 13:24 | Outpatient (BNVA) | payer OTHER, SELFPAY | PROVIDERS: PCP Internal Medicine; Visit Provider Internal Medicine | DX: E11.319 Type 2 diabetes mellitus with unspecified diabetic retinopathy without macular edema (principal); E11.649 Type 2 diabetes mellitus with hypoglycemia without coma; Z79.4 Long term (current) use of insulin; Z79.84 Long term (current) use of oral hypoglycemic drugs; Z79.85 Long-term (current) use of injectable non-insulin antidiabetic drugs | CPT/HCPCS: 82947; 83036; 99212 ==